=== PATIENT | female | born 1950 | race Native Hawaiian/Other Pacific Islander ===

== ENCOUNTER 2018-12-05 11:54 | Outpatient (CLI) | payer MEDICARE | END 2019-02-05 11:20 | disposition home or self-care (01) | LOC: C.DEXAIC 11:54 → C.RADIC 02-05 11:19 | DX: R05 Cough (principal) ==

== ENCOUNTER 2019-02-12 09:40 | Outpatient (CLI) | payer MEDICARE | END 2019-02-12 09:41 | disposition home or self-care (01) | LOC: C.DEXAIC 09:40 | DX: Z13.820 Encounter for screening for osteoporosis (principal) ==